=== PATIENT | female | born 1940 | race Caucasian/White ===

== ENCOUNTER → 2018-05-23 15:03 | Outpatient (CLI) | payer MEDICARE, SELFPAY ==
--- NOTE | 2018-05-23 | DI.MG.S_ITS ---
BILATERAL DIGITAL SCREENING MAMMOGRAM 3D/2D WITH CAD: 05/23/2018 CLINICAL: Routine screening. Comparison is made to exams dated: 04/25/2017 mammogram, 04/15/2016 mammogram, and 04/14/2015 mammogram - [facility]. There are scattered fibroglandular elements in both breasts. Current study was also evaluated with a Computer Aided Detection (CAD) system. No significant masses, calcifications, or other findings are seen in either breast. There has been no significant interval change. IMPRESSION: NEGATIVE There is no mammographic evidence of malignancy. A 1 year screening mammogram is recommended. This exam was interpreted at Station ID: [id number]. NOTE: For mammograms, a report in lay terms will be sent to the patient. Approximately 15% of breast malignancies will not be visualized mammographically. In the management of a palpable breast mass, a negative mammogram must not discourage biopsy of a clinically suspicious lesion. Electronically Signed By: Mirella abraham/josé manuel:05/23/2018 16:31:50 letter sent: Normal Exam ACR BI-RADS Category 1: Negative 3341F
== END ==
PROVIDERS: Visit Provider Internal Medicine
DX: Z12.31 Encounter for screening mammogram for malignant neoplasm of breast (principal)
CPT/HCPCS: 77063; 77067

== ENCOUNTER → 2019-07-03 15:05 | Outpatient (CLI) | payer MEDICARE, SELFPAY ==
--- NOTE | 2019-07-03 | DI.MG.S_ITS ---
BILATERAL DIGITAL SCREENING MAMMOGRAM 3D/2D WITH CAD: 07/03/2019 CLINICAL: Routine screening. Comparison is made to exams dated: 05/23/2018 mammogram, 04/25/2017 mammogram, 04/15/2016 mammogram, 04/14/2015 mammogram, 03/06/2014 mammogram, and 03/04/2013 mammogram - [facility]. There are scattered fibroglandular elements in both breasts. Current study was also evaluated with a Computer Aided Detection (CAD) system. There is an irregular equal density asymmetry with an indistinct margin in the right breast middle depth central to the nipple seen on the craniocaudal view only. This is more prominent. No other significant masses, calcifications, or other findings are seen in either breast. IMPRESSION: INCOMPLETE: NEEDS ADDITIONAL IMAGING EVALUATION The irregular equal density asymmetry in the right breast is indeterminate. Additional views with possible ultrasound are recommended. This exam was interpreted at Station ID: [id number]. NOTE: For mammograms, a report in lay terms will be sent to the patient. Approximately 15% of breast malignancies will not be visualized mammographically. In the management of a palpable breast mass, a negative mammogram must not discourage biopsy of a clinically suspicious lesion. Electronically Signed By: Jonathan Matias M.D. slc/:07/04/2019 08:49:35 letter sent: Additional Imaging Needed ACR BI-RADS Category 0: Incomplete 3340F
== END ==
PROVIDERS: Referring Provider Internal Medicine; Visit Provider Internal Medicine
DX: Z12.31 Encounter for screening mammogram for malignant neoplasm of breast (principal)
CPT/HCPCS: 77063; 77067

== ENCOUNTER → 2019-08-05 09:06 | Outpatient (CLI) | payer MEDICARE, SELFPAY ==
--- NOTE | 2019-08-05 | DI.MG.S_ITS ---
UNILATERAL RIGHT DIGITAL DIAGNOSTIC MAMMOGRAM 3D/2D WITH ADDITIONAL VIEWS: 08/05/2019 CLINICAL: Additional evaluation requested from prior study. Comparison is made to exams dated: 07/03/2019 mammogram, 05/23/2018 mammogram, and 04/25/2017 mammogram - [facility]. There are scattered fibroglandular elements in right breast. The asymmetry with an indistinct margin in the right breast middle depth central to the nipple seen on the craniocaudal view is not seen in additional views. No other significant masses or calcifications are seen in the breast. IMPRESSION: There is no mammographic evidence of malignancy. A 1 year screening mammogram is recommended. This exam was interpreted at Station ID: [id number]. NOTE: For mammograms, a report in lay terms will be sent to the patient. Approximately 15% of breast malignancies will not be visualized mammographically. In the management of a palpable breast mass, a negative mammogram must not discourage biopsy of a clinically suspicious lesion. Electronically Signed By: Mirella Griffith M.D. lk/:08/05/2019 09:45:18 letter sent: Normal Exam ACR BI-RADS Category 2: Benign Finding(s) 3342F
== END ==
PROVIDERS: PCP Internal Medicine; Referring Provider Internal Medicine; Visit Provider Internal Medicine
DX: R92.8 Other abnormal and inconclusive findings on diagnostic imaging of breast (principal)
CPT/HCPCS: 77065; G0279

== ENCOUNTER → 2020-08-12 15:58 | Outpatient (CLI) | payer MEDICARE, SELFPAY ==
--- NOTE | 2020-08-12 16:02 | DI.MG.S_ITS ---
BILATERAL DIGITAL SCREENING MAMMOGRAM 3D/2D WITH CAD: 08/12/2020 CLINICAL: Routine screening. Comparison is made to exams dated: 07/03/2019 mammogram, 05/23/2018 mammogram, and 04/25/2017 mammogram - [facility]. There are scattered fibroglandular elements in both breasts. Current study was also evaluated with a Computer Aided Detection (CAD) system. No significant masses, calcifications, or other findings are seen in either breast. There has been no significant interval change. IMPRESSION: NEGATIVE There is no mammographic evidence of malignancy. A 1 year screening mammogram is recommended. This exam was interpreted at Station ID: [id number]. NOTE: For mammograms, a report in lay terms will be sent to the patient. Approximately 15% of breast malignancies will not be visualized mammographically. In the management of a palpable breast mass, a negative mammogram must not discourage biopsy of a clinically suspicious lesion. Electronically Signed By: Aayush Heath M.D., jr/josé manuel:08/12/2020 16:35:21 letter sent: Normal Exam ACR BI-RADS Category 1: Negative 3341F
== END ==
PROVIDERS: PCP Physician Assistant; Referring Provider Internal Medicine; Visit Provider Internal Medicine
DX: Z12.31 Encounter for screening mammogram for malignant neoplasm of breast (principal)
CPT/HCPCS: 77063; 77067

== ENCOUNTER 2021-03-24 14:31 | Emergency (ER) | payer MEDICARE, SELFPAY ==
[2021-03-24 14:35] VITALS: BP 174/86; PULSE 96; RESP 24; TEMP 36.6; O2SAT 93; BMI 27.1
--- NOTE | 2021-03-24 14:52 | DI.RAD.S_ITS ---
PROCEDURE: XR CHEST 1V INDICATIONS: chest pain TECHNIQUE: One view of the chest was acquired. COMPARISON: None. FINDINGS: Surgical changes and devices: None. Lungs and pleura: Lungs are clear. No pleural effusions or pneumothorax. Mediastinum: Mediastinal contours appear normal. Heart size is normal. Bones and chest wall: No suspicious bony lesions. Overlying soft tissues appear unremarkable. IMPRESSION: No evidence acute pulmonary process. Dictated by: Vinay Freitas M.D. on 03/24/2021 at 15:39 Approved by: Vinay Freitas M.D. on 03/24/2021 at 15:40
[2021-03-24 15:12] LABS: Add Manual Diff / Slide Review NO; Basophils Absolute Auto 100 /uL (0-100); Eosinophils Absolute Auto 200 /uL (0-450); Eosinophils Percent Auto 2.5 % (2-4); Hemoglobin 13.6 g/dL (12.0-16.0); Lymphocytes Absolute Auto 1900 /uL (1100-4500); Lymphocytes Percent Auto 30.4 % (25-40); Mean Corpuscular HGB Conc 33.2 % (30-36); Mean Corpuscular Hemoglobin 29.4 PG (26-34); Mean Corpuscular Volume 88.5 fL (80-100); Monocytes Absolute Auto 600 /uL (0-900); Monocytes Percent Auto 9.4 % (3-14); Neutrophils Absolute Auto 3500 /uL (1500-7000); Neutrophils Percent Auto 56.7 % (50-75); Platelet Count 252 X10^3/uL (150-400); Red Blood Cell Count 4.63 X10^6/uL (4.0-5.2); Red Cell Distribution Width 13.6 % (11.6-14.8); White Blood Cell Count 6.2 X10^3/uL (4.5-11.0)
[2021-03-24 15:21] LABS: Alanine Aminotransferase 22 IU/L (<35); Albumin 4.6 g/dL (3.5-5.0); Albumin Globulin Ratio 1.8 (1.0-2.8); Alkaline Phosphatase 77 U/L (38-126); Aspartate Aminotransferase 29 IU/L (14-36); BUN Creatinine Ratio 31.1 (6-22); Bilirubin Total 0.5 mg/dL (0.2-1.3); Blood Urea Nitrogen 23 mg/dL (7-17); Calcium 9.7 mg/dL (8.4-10.2); Carbon Dioxide 28 mmol/L (22-32); Chloride 103 mmol/L (98-107); Creatine Kinase 54 U/L (30-135); Estimated Glomerular Filt Rate > 60.0 mL/min (>60); Globulin 2.6 g/dL (1.7-4.1); Glucose 117 mg/dL (80-110); HEMOLYSIS < 15 (0-50); Lipase 1016 U/L (23-300); Potassium 4.4 mmol/L (3.4-5.1); Sodium 139 mmol/L (137-145); Total Protein 7.2 g/dL (6.3-8.2)
[2021-03-24 15:25] VITALS: PULSE 90; O2SAT 95
--- NOTE | 2021-03-24 15:29 | ED_ITS ---
HPI - Arrhythmia/Palpitations General Chief Complaint: Arrhythmia/Palpitations Stated Complaint: Odd pulse readings- referred by Time Seen by Provider: 03/24/21 15:18 Source: patient Mode of arrival: Ambulatory Limitations: no limitations History of Present Illness HPI narrative: 80-year-old female. Has a history of COPD. Does have oxygen at home that she can use as needed. She states that recently she has had some irregular pulse readings on her pulse oximeter that she wears when she goes out and walks around. She states that the reading on the pulse oximeter sometimes is as low as 30 and sometimes as high as the upper 100s. She occasionally gets lightheaded but otherwise has no other associated symptoms when the pulse ox is reading these abnormal numbers. She is having no chest pain. No palpitations. She contacted her primary provider. She was told to come to the emergency department for evaluation by her primary provider. She thinks that there has been some discussion about a Holter monitor but she is not 100% convinced of this. She currently is asymptomatic. Related Data Home Medications Medication Instructions Recorded Confirmed Diphenhydramine Hydrochloride 25 mg PO QID #0 04/18/12 (BENADRYL) atorvastatin 10 mg tablet (Lipitor) 10 mg PO HS #0 04/18/12 methylprednisolone 4 mg tablet 4 mg PO 5XDAY #0 04/18/12 triamterene 37.5 1 tab PO QDAY #0 04/18/12 mg-hydrochlorothiazide 25 mg tablet ASCORBIC ACID (VITAMIN C) 1,000 mg PO #0 06/19/12 VITAMIN D (Vitamin D3) 1,000 unit PO QDAY #0 06/19/12 aspirin 81 mg chewable tablet 81 mg PO 0800 #0 06/19/12 Allergies Allergy/AdvReac Type Severity Reaction Status Date / Time lisinopril [LISINOPRIL] Allergy Severe AIRWAY Unverified 08/30/17 12:01 RESTRICTION venom-honey bee Allergy Severe SEVERE Unverified 08/30/17 12:01 [BEE VENOM (HONEY BEE)] SWELLING carbamazepine [CARBAMAZEPINE] Allergy Mild FEVER, Unverified 08/30/17 12:01 NAUSEA, RASH AI Inhibitors Allergy Unknown Unverified 08/30/17 12:01 [AI INHIBITORS] ampicillin [AMPICILLIN] Allergy Unknown Unverified 08/30/17 12:01 phenytoin [PHENYTOIN] Allergy Unknown RASH Unverified 08/30/17 12:01 Sulfa (Sulfonamide Allergy Unknown Unverified 08/30/17 12:01 Antibiotics) [SULFA (SULFONAMIDE ANTIBIOTICS)] lamotrigine [LAMOTRIGINE] AdvReac Unknown WEIGHT LOSS Unverified 08/30/17 12:01 Review of Systems Constitutional Constitutional: Denies fever(s) and Denies headache(s) Eyes Eyes: Reports system reviewed and no additional complaints, except as documented ENT Ears, Nose, Mouth, and Throat: Denies vertigo, Reports dizziness and Denies headache(s) Cardiovascular Cardiovascular: Denies chest pain, Denies diaphoresis, Denies rapid heart rate and Denies slow heart rate Respiratory Respiratory: Reports as per HPI and Reports system reviewed and no additional complaints, except as documented Gastrointestinal Gastrointestinal: Reports system reviewed and no additional complaints, except as documented Integumentary/Breasts Skin/Breast: Reports system reviewed and no additional complaints, except as documented Neurologic Neurologic: Denies confusion, Denies vertigo, Reports dizziness and Denies headache(s) Psychiatric Psychiatric: Denies confusion Hematologic/Lymphatic On Anticoagulants: No Allergic/Immunologic Allergic/Immunologic: Reports system reviewed and no additional complaints, except as documented Patient History Medical History Chronic obstructive pulmonary disease Social History Smoking Status: Former smoker Smoking Status: Former smoker Substance Use Type: does not use Exam Initial Vital Signs Initial Vital Signs: Vital Signs Temperature 98 F 03/24/21 14:35 Pulse Rate 96 H 03/24/21 14:35 Respiratory Rate 24 03/24/21 14:35 Blood Pressure 174/86 H 03/24/21 14:35 Pulse Oximetry 93 03/24/21 14:35 HENMT Head: normal to inspection Resp Effort & Inspection: normal respiratory effort Auscultation: clear to auscultation bilaterally Cardio Rate: regular rate Rhythm: regular rhythm GI Inspection: normal to inspection Skin General: no rashes or lesions noted Neuro General: patient alert, patient awake, patient oriented x3 and moves all extremities Extrem General: normal to inspection Psych Appearance: grossly normal and well kempt Course Orders Ordered: ED Orders 03/24/21 14:52 XR chest 1V Stat 03/24/21 15:00 Complete Blood Count AUTO DIFF Stat Comprehensive Metabolic Panel Stat Lipase Stat Troponin & CK Cardiac Panel Stat 03/24/21 15:23 EKG-12 Lead Stat Vital Signs Vital signs: Vital Signs - 8 hr 03/24/21 14:35 03/24/21 15:25 03/24/21 15:30 Temperature 98 F Pulse Rate 96 H 90 85 Respiratory Rate 24 Blood Pressure 174/86 H Pulse Oximetry 93 95 97 03/24/21 15:34 03/24/21 15:44 03/24/21 16:20 Temperature Pulse Rate 82 89 79 Respiratory Rate 15 33 H 17 Blood Pressure 141/77 H 154/86 H 129/80 Pulse Oximetry 97 93 96 MDM - Arrhythmia/Palpitations Lab Data Attestation: I reviewed the patient's lab results. Result diagrams: 03/24/21 15:00 03/24/21 15:00 Labs: Lab Results 03/24/21 03/24/21 Range/Units 15:00 15:00 WBC 6.2 (4.5-11.0) X10^3/uL RBC 4.63 (4.0-5.2) X10^6/uL Hgb 13.6 (12.0-16.0) g/dL Hct 41.0 (36-46) % MCV 88.5 (80-100) fL MCH 29.4 (26-34) PG MCHC 33.2 (30-36) % RDW 13.6 (11.6-14.8) % Plt Count 252 (150-400) X10^3/uL Neut % (Auto) 56.7 (50-75) % Lymph % (Auto) 30.4 (25-40) % [place] % (Auto) 9.4 (3-14) % Eos % (Auto) 2.5 (2-4) % Baso % (Auto) 1.0 (0-2) % Neut # (Auto) 3500 (6825-8688) /uL Lymph # (Auto) 1900 (0235-1138) /uL [place] # (Auto) 600 (0-900) /uL Eos # (Auto) 200 (0-450) /uL Baso # (Auto) 100 (0-100) /uL Sodium 139 (137-145) mmol/L Potassium 4.4 (3.4-5.1) mmol/L Chloride 103 (98-107) mmol/L Carbon Dioxide 28 (22-32) mmol/L BUN 23 H (7-17) mg/dL Creatinine 0.74 (0.52-1.04) mg/dL Estimated GFR > 60.0 (>60) mL/min BUN/Creatinine Ratio 31.1 H (6-22) Glucose 117 H (80-110) mg/dL Calcium 9.7 (8.4-10.2) mg/dL Total Bilirubin 0.5 (0.2-1.3) mg/dL AST 29 (14-36) IU/L ALT 22 (<35) IU/L Alkaline Phosphatase 77 (38-126) U/L Total Creatine Kinase 54 (30-135) U/L CK-MB (CK-2) TNP CK-MB (CK-2) Rel Index TNP Troponin I < 0.012 (0.01-0.034) ng/mL Total Protein 7.2 (6.3-8.2) g/dL Albumin 4.6 (3.5-5.0) g/dL Globulin 2.6 (1.7-4.1) g/dL Albumin/Globulin Ratio 1.8 (1.0-2.8) Lipase 1016 H (23-300) U/L Imaging Data Chest x-ray: Radiologist's Impresson: [place] [address] XRay Report Signed Patient: Sherly Lewis MR#: [id number] : 1940 Acct:[id number] Age/Sex: 80 / F Date of Service: 03/24/21 Loc: ED Accession Number: [id number] ?? Procedure: XR chest 1V Ordering Provider: Wayne Olivera D.O. PROCEDURE:? XR CHEST 1V ? INDICATIONS:? chest pain ? TECHNIQUE:? One view of the chest was acquired.? ? COMPARISON:? None. ? FINDINGS:? ? Surgical changes and devices:? None.? ? Lungs and pleura:? Lungs are clear.? No pleural effusions or pneumothorax.? ? Mediastinum:? Mediastinal contours appear normal.? Heart size is normal.? ? Bones and chest wall:? No suspicious bony lesions.? Overlying soft tissues appear unremarkable.? ? IMPRESSION:? No evidence acute pulmonary process. ? ? ? Dictated by: Vinay Freitas M.D. on 03/24/2021 at 15:39 ? ? Approved by: Vinay Freitas M.D. on 03/24/2021 at 15:40? ECG Data Attestation: I personally reviewed and interpreted this ECG as follows: Interpretation: Sinus rhythm Ventricular rate 83 Normal axis Normal QRS Normal QTC No ST T wave changes MDM Narrative Medical decision making narrative: Patient had no ectopy on the monitors nor on the EKG. Patient is asymptomatic. Her lab work is unremarkable. I did discuss the indication for a Holter monitor with the patient. She states that she thinks that her doctor has mentioned this in the past. I feel patient be safely discharged home without further workup here in the emergency department. She was given strict return precautions. She expressed understanding and agreement. Discharge Plan Departure Patient Disposition: Home Clinical Impression: Palpitations Instructions: Arrhythmias Activity Restrictions/Additional Instructions: Your workup here in the emergency department today is very reassuring. I recommend that you talk with your doctor about ordering was called a Holter monitor. This is a heart monitor that is worn for period of time and can distinguish whether not your actually having abnormal heart rhythms. Continue all of your medications as directed. Return to the emergency department for any new or worsening symptoms Prescriptions: No Action Diphenhydramine Hydrochloride (BENADRYL) 25 mg PO QID Qty: 0 RF: 0 atorvastatin [Lipitor] 10 MG tablet 10 mg PO HS Qty: 0 RF: 0 methylprednisolone 4 MG tablet 4 mg PO 5XDAY Qty: 0 RF: 0 triamterene-hydrochlorothiazid 37.5 MG/25 MG tablet 1 tab PO QDAY Qty: 0 RF: 0 ASCORBIC ACID (VITAMIN C) 1,000 mg PO Qty: 0 RF: 0 aspirin 81 MG tablet,chewable 81 mg PO 0800 Qty: 0 RF: 0 VITAMIN D (Vitamin D3) 1,000 unit PO QDAY Qty: 0 RF: 0 Referrals: Beverly Rogel [Primary Care Provider] -
[2021-03-24 15:30] VITALS: PULSE 85; O2SAT 97
[2021-03-24 15:33] LABS: Troponin I < 0.012 ng/mL (0.01-0.034)
[2021-03-24 15:34] VITALS: BP 141/77; PULSE 82; RESP 15; O2SAT 97
[2021-03-24 15:44] VITALS: BP 154/86; PULSE 89; RESP 33; O2SAT 93
[2021-03-24 16:20] VITALS: BP 129/80; PULSE 79; RESP 17; O2SAT 96
== END 2021-03-24 16:21 | disposition home or self-care (01) ==
PROVIDERS: Emergency Provider Emergency Medicine
DX: R00.2 Palpitations (principal); R42 Dizziness and giddiness; R07.9 Chest pain, unspecified
CPT/HCPCS: 36415; 71045; 80053; 82550; 83690; 84484; 85025; 93005; 99283; 99284

== ENCOUNTER → 2021-08-18 11:48 | Outpatient (CLI) | payer MEDICARE, SELFPAY ==
--- NOTE | 2021-08-18 | DI.MG.S_ITS ---
BILATERAL DIGITAL SCREENING MAMMOGRAM 3D/2D WITH CAD: 08/18/2021 CLINICAL: Routine screening. Comparison is made to exams dated: 08/12/2020 mammogram, 08/05/2019 mammogram, 05/23/2018 mammogram, 04/25/2017 mammogram, and 04/14/2015 mammogram - [facility]. There are scattered fibroglandular elements in both breasts. Current study was also evaluated with a Computer Aided Detection (CAD) system. No significant masses, calcifications, or other findings are seen in either breast. There has been no significant interval change. IMPRESSION: NEGATIVE There is no mammographic evidence of malignancy. A 1 year screening mammogram is recommended. This exam was interpreted at Station ID: [id number]. NOTE: For mammograms, a report in lay terms will be sent to the patient. Approximately 15% of breast malignancies will not be visualized mammographically. In the management of a palpable breast mass, a negative mammogram must not discourage biopsy of a clinically suspicious lesion. Electronically Signed By: Jonathan hall/josé manuel:08/18/2021 13:51:42 letter sent: Normal Exam ACR BI-RADS Category 1: Negative 3341F
== END ==
PROVIDERS: PCP Family Medicine Adult Medicine; Referring Provider Family Medicine Adult Medicine; Visit Provider Family Medicine Adult Medicine
DX: Z12.31 Encounter for screening mammogram for malignant neoplasm of breast (principal)
CPT/HCPCS: 77063; 77067

== ENCOUNTER → 2022-08-19 11:01 | Outpatient (CLI) | payer MEDICARE, SELFPAY ==
--- NOTE | 2022-08-19 | DI.MG.S_ITS ---
BILATERAL DIGITAL SCREENING MAMMOGRAM 3D/2D WITH CAD: 08/19/2022 CLINICAL: Routine screening. Comparison is made to exams dated: 08/18/2021 mammogram, 08/12/2020 mammogram, 07/03/2019 mammogram, 05/23/2018 mammogram, and 04/25/2017 mammogram - [facility]. There are scattered areas of fibroglandular density in both breasts (category b / 25%-50% glandular tissue). Current study was also evaluated with a Computer Aided Detection (CAD) system. No significant masses, calcifications, or other findings are seen in either breast. There has been no significant interval change. IMPRESSION: NEGATIVE There is no mammographic evidence of malignancy. A 1 year screening mammogram is recommended. Based on the Tyrer Cuzick model (a risk assessment model) the patient's lifetime risk is 1.8% and her 10 year risk is 0.0%. According to the ACR, ACS, and NCCN guidelines, an annual breast MRI exam along with mammogram is recommended if the patient's lifetime risk is 20% or greater. This exam was interpreted at Station ID: [id number]. NOTE: For mammograms, a report in lay terms will be sent to the patient. Approximately 15% of breast malignancies will not be visualized mammographically. In the management of a palpable breast mass, a negative mammogram must not discourage biopsy of a clinically suspicious lesion. Electronically Signed By: Jonathan hall/josé manuel:08/19/2022 12:13:52 letter sent: Normal Exam ACR BI-RADS Category 1: Negative 3341F
== END ==
PROVIDERS: PCP Family Medicine Adult Medicine; Referring Provider Family Medicine Adult Medicine; Visit Provider Family Medicine Adult Medicine
DX: Z12.31 Encounter for screening mammogram for malignant neoplasm of breast (principal)
CPT/HCPCS: 77063; 77067

== ENCOUNTER → 2023-07-17 13:25 | Outpatient (CLI) | payer MEDICARE, SELFPAY ==
--- NOTE | 2023-07-17 | DI.MG.S_ITS ---
BILATERAL DIGITAL DIAGNOSTIC MAMMOGRAM 3D/2D: 07/17/2023 CLINICAL: Right breast lump. Comparison is made to exams dated: 08/19/2022 mammogram, 08/18/2021 mammogram, 08/12/2020 mammogram, and 08/05/2019 mammogram - [facility]. There are scattered areas of fibroglandular density in both breasts (category b / 25%-50% glandular tissue). No significant masses, calcifications, or other findings are seen in either breast. IMPRESSION: INCOMPLETE: NEEDS ADDITIONAL IMAGING EVALUATION No mammographic evidence of malignancy. A targeted ultrasound is recommended and will immediately follow. Based on the Tyrer Cuzick model (a risk assessment model) the patient's lifetime risk is 0.8% and her 10 year risk is 0.0%. According to the ACR, ACS, and NCCN guidelines, an annual breast MRI exam along with mammogram is recommended if the patient's lifetime risk is 20% or greater. This exam was interpreted at Station ID: [id number]. NOTE: For mammograms, a report in lay terms will be sent to the patient. Approximately 15% of breast malignancies will not be visualized mammographically. In the management of a palpable breast mass, a negative mammogram must not discourage biopsy of a clinically suspicious lesion. Electronically Signed By: Jonathan Matias M.D. slc/:07/17/2023 14:56:59 ACR BI-RADS Category 0: Incomplete 3340F
--- NOTE | 2023-07-17 | DI.US.S_ITS ---
LIMITED ULTRASOUND OF RIGHT BREAST AND AXILLA: 07/17/2023 CLINICAL: Palpable right breast lump. Comparison is made to exams dated: 07/17/2023 mammogram, 08/19/2022 mammogram, 08/18/2021 mammogram, 08/12/2020 mammogram, 08/05/2019 mammogram, and 07/03/2019 mammogram - [facility]. Color flow and real-time ultrasound of the right breast 2 o'clock, and axilla regions were performed. Chapman scale images of the real-time examination were reviewed. There is a benign 0.9 cm oval post-surgical scar with an indistinct margin in the right breast at 2 o'clock posterior depth 14 cm from the nipple. This oval post-surgical scar is isoechoic. This correlates as palpated and with the previous biopsy. Color flow imaging demonstrates that there is no vascularity present. No significant abnormalities were seen sonographically in the right axilla. IMPRESSION: BENIGN There is no sonographic evidence of malignancy. Palpable abnormality in the right breast corresponds to a subtle isoechoic scar. No enlarged right axillary lymph nodes. Exam findings were conveyed to the patient. Patient is advised to monitor for significant change. Clinical follow-up as needed. A 1 year screening mammogram is recommended. This exam was interpreted at Station ID: [id number]. Electronically Signed By: Jonathan Matias M.D. [facility] [place]/:07/17/2023 15:02:19 letter sent: Normal Exam Ultrasound BI-RADS: 2 Benign
== END ==
PROVIDERS: Referring Provider Family Medicine; Visit Provider Family Medicine
DX: R92.2 Inconclusive mammogram; N63.10 Unspecified lump in the right breast, unspecified quadrant; R92.323 Mammographic fibroglandular density, bilateral breasts
CPT/HCPCS: 76642; 77066; G0279

== ENCOUNTER → 2024-07-31 12:41 | Outpatient (CLI) | payer MEDICARE, SELFPAY ==
--- NOTE | 2024-07-31 12:46 | DI.MG.S_ITS ---
MM screening mammo BI: 07/31/2024. BI-RADS: 1 CLINICAL: 83-year old female for bilateral screening mammogram. Tyrer-Cuzick lifetime risk of 0.4%. No personal or first-degree family history of breast cancer. PRIOR EXAMS 07/17/2023, 08/19/2022, 08/18/2021, 08/12/2020, 08/05/2019, 07/03/2019, 05/23/2018, 04/25/2017, 04/15/2016, 04/14/2015. MAMMOGRAPHY TECHNIQUE: 2D and 3D (tomosynthesis) digital mammographic views obtained, with additional images as needed for full coverage. Current study was also evaluated with a Computer Aided Detection (CAD) system. DENSITY B. There are scattered areas of fibroglandular density. MAMMOGRAPHY FINDINGS Bilateral: No suspicious mass, asymmetry, microcalcification, or other abnormality seen. No significant change from comparison. IMPRESSION: * No evidence of malignancy. RECOMMENDATIONS Bilateral * Annual screening mammography. OVERALL ASSESSMENT CATEGORY BI-RADS-1: Negative. The [employer] recommends annual screening mammography beginning at age 40 for women with average risk of breast cancer. ELECTRONICALLY SIGNED: Nan Lynch M.D. on 07/31/2024 at 05:29:13 PM PT Interpreting Station ID: [id number]
--- NOTE | 2024-07-31 13:26 | DI.MG.S_ITS ---
Patient Name: JIMMY STODDARD date: 1940 Sex: F Attending Physician: Luci Indications: Date: 07/31/2024 17:29 At the request of: OSEI SANABRIA Procedure: MM screening mammo BI MM screening mammo BI: 07/31/2024. BI-RADS: 1 CLINICAL: 83-year old female for bilateral screening mammogram. Tyrer-Cuzick lifetime risk of 0.4%. No personal or first-degree family history of breast cancer. PRIOR EXAMS 07/17/2023, 08/19/2022, 08/18/2021, 08/12/2020, 08/05/2019, 07/03/2019, 05/23/2018, 04/25/2017, 04/15/2016, 04/14/2015. MAMMOGRAPHY TECHNIQUE: 2D and 3D (tomosynthesis) digital mammographic views obtained, with additional images as needed for full coverage. Current study was also evaluated with a Computer Aided Detection (CAD) system. DENSITY B. There are scattered areas of fibroglandular density. MAMMOGRAPHY FINDINGS Bilateral: No suspicious mass, asymmetry, microcalcification, or other abnormality seen. No significant change from comparison. IMPRESSION: * No evidence of malignancy. RECOMMENDATIONS Bilateral * Annual screening mammography. Continued Report - Page 2 of 2 Patient Name: JIMMY STODDARD date: 1940 Sex: F Attending Physician: Luci Indications: Date: 07/31/2024 17:29 At the request of: OSEI SANABRIA Procedure: MM screening mammo BI OVERALL ASSESSMENT CATEGORY BI-RADS-1: Negative. The [employer] recommends annual screening mammography beginning at age 40 for women with average risk of breast cancer. ELECTRONICALLY SIGNED: Nan Lynch M.D. on 07/31/2024 at 05:29:13 PM PT Interpreting Station ID: [id number]
== END ==
LOC: MAMMO 12:45
PROVIDERS: Referring Provider Family Medicine; Visit Provider Family Medicine
DX: Z12.31 Encounter for screening mammogram for malignant neoplasm of breast (principal)
CPT/HCPCS: 77063; 77067